=== PATIENT | male | born 1950 | race Caucasian/White ===

== ENCOUNTER 2020-04-25 04:56 | Inpatient (IN) ==
--- NOTE | 2020-03-24 16:09 | PAT Medication Instructions ---
Medication Instructions Date of Service March 24, 2020 Home Medications aspirin [Aspir-81] 81 mg PO QAM multivitamin 1 tab PO QAM omega 4-hyv-yys-fish oil [Fish Oil] 1 cap PO QAM STOP taking 2 weeks before surgery omega 5-zgf-tfd-fish oil [Fish Oil] 1 cap PO QAM DO NOT take the morning of surgery multivitamin 1 tab PO QAM Take morning of surgery With a small sip of water, OTHERWISE NOTHING TO EAT OR DRINK AFTER MIDNIGHT: aspirin [Aspir-81] 81 mg PO QAM Other Notes If you have any questions please call us at [phone] or [phone] or [phone] or [phone]
--- NOTE | 2020-03-27 07:59 | History & Physical Report ---
Date of Service March 27, 2020 date of surgery: 04-25-20 Assessment & Plan (1) Arthritis of knee, left: Risks and benefits of procedure discussed in detail today, patient would like to proceed with a Left total knee replacement at [facility] as scheduled. will obtain medical clearance from Dr Atkins prior to surgery as well as obtain PATs at [facility]. Will place on ASA 81mg po bid x 1 month post op, f/u 2 weeks post op for routine post-operative care and x-ray, sooner if having any problems. will make arrangements for HHPT at the time of discharge. At this point in time, has failed conservative measures and would like to proceed with surgical intervention. The risks and benefits have been discussed including, but not limited to, risk of infection, nerve injury, stiffness, loss of motion, failure to improve, etc. Reasonable outcomes and options of treatment were discussed. An explanation of appropriate alternatives to the procedure that may be advantageous were discussed and their risks and benefits, as well as the risks and benefits of not proceeding with treatment. I offered to answer any additional inquiries concerning the treatment involved. All the patient's questions were answered. The patient is agreeable, understanding of the treatment plan and alternatives, and wishes to proceed with the treatment plan. History of Present Illness Chief Complaint: left knee pain Primary Care Provider: Minesh Atkins Felix is a 69 year old male who complains of left knee pain, presents for pre-op evaluation prior to a left total knee replacement by dr Newton at [facility]. He complains of pain, decreased range of motion, instability and stiffness in his left knee. He states that the symptoms have been chronic and non-traumatic. Felix states that the symptoms occur constantly with intermittent worsening. Currently the patient states that the symptoms are moderate-severe. The pain is described as aching, sharp and throbbing. The symptoms occur continuously. The symptoms are aggravated by ascending stairs, daily activities, first steps while awake walking. Prior NSAIDs include Aleve and IBU. He has been treated with previous Visco injections (Euflexxa) in the past without much relief. Allergies Allergy/AdvReac Type Severity Reaction Status Date / Time No Known Allergies Allergy Verified 03/20/20 13:45 Home Medications Home Medications Medication Instructions Recorded Confirmed Type aspirin [Aspir-81] 81 mg PO QAM 03/20/20 03/20/20 History multivitamin 1 tab PO QAM 03/20/20 03/20/20 History omega 1-eue-oia-fish oil [Fish Oil] 1 cap PO QAM 03/20/20 03/20/20 History Past Med/Surg History Medical History Hearing deficit Wears hearing aids Hyperlipidemia borderline Osteoarthritis Surgical History BCC (basal cell carcinoma of skin) removed from nose and right zoroastrian History of colonoscopy x2 History of laminectomy lumbar History of tooth extraction Hx of bilateral cataract extraction Hx of vasectomy Melanoma removed from left shoulder Social History Smoking Status: Former smoker Smoking End Date: 35 YRS AGO; Second Hand Exposure: No; Do You Dip or Chew Tobacco: No; Tobacco Cessation Education Requested by Patient: No Hx Alcohol Use: Yes Alcohol type: beer Hx Substance Use: No Preferred Language: [place] Communication Ability: Effective 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 Beliefs That Will Affect Care: None Current Living Situation: Spouse Other Information That Helps Us Care for You: No Feels Safe at Home: Yes Safety Concerns: Feels Safe At This Time Review of Systems Review of Systems: All systems reviewed & are unremarkable except as noted in HPI & below Constitutional: no fever, no chills and no sweats Respiratory: no cough and no dyspnea Cardiovascular: no chest pain, no dyspnea and no orthopnea Gastrointestinal: no abdominal pain, no nausea and no vomiting Musculoskeletal: as per Subjective / HPI Physical Exam Physical Exam: HT: 6ft 2in WT: 111kg BP: 128/68 Constitutional: WD/WN, vitals as above no acute distress Respiratory: normal respiratory effort, lungs clear to auscultation no respiratory distress, no labored breathing and does not use accessory muscles Cardiovascular: RRR, no murmur, no edema Gastrointestinal (Abdomen): normal bowel sounds, soft, nontender, no hepatosplenomegaly Musculoskeletal: Knee: + knee abnormal to inspection (left knee), + deformity (varus), + effusion (+1 effusion), + limited ROM of knee (ROM 0/3/110), + knee ROM with crepitation, + joint line tenderness (medial joint line) and + Cristina's sign positive; no skin erythema, no ecchymosis, no valgus laxity, no varus laxity, anterior drawer test negative, Medhat's sign negative and pivot shift test negative Results & Data Results & Data ([facility]) Laboratory Results Laboratory Results WBC 10.31 K/uL (4.8-10.8) 03/27/20 12:10 RBC 4.71 M/uL (4.7-6.1) 03/27/20 12:10 Hgb 14.3 g/dL (14.0-18.0) 03/27/20 12:10 Hct 42.4 % (42-52) 03/27/20 12:10 MCV 90.0 fL (80-100) 03/27/20 12:10 MCH 30.4 pg (25-34) 03/27/20 12:10 MCHC 33.7 g/dL (32-36) 03/27/20 12:10 RDW Std Deviation 43.3 fL (36.4-46.3) 03/27/20 12:10 RDW Coeff of Beltran 13.2 % (11.5-14.5) 03/27/20 12:10 Plt Count 329 K/uL (130-400) 03/27/20 12:10 MPV 10.6 fL (7.4-10.4) H 03/27/20 12:10 Immature Gran % (Auto) 0.3 % 03/27/20 12:10 Neut % (Auto) 69.7 % 03/27/20 12:10 Lymph % (Auto) 19.2 % 03/27/20 12:10 [place] % (Auto) 8.5 % 03/27/20 12:10 Eos % (Auto) 1.9 % 03/27/20 12:10 Baso % (Auto) 0.4 % 03/27/20 12:10 Neut # (Auto) 7.18 K/uL (1.4-6.5) H 03/27/20 12:10 Lymph # (Auto) 1.98 K/uL (1.2-3.4) 03/27/20 12:10 [place] # (Auto) 0.88 K/uL (0.11-0.59) H 03/27/20 12:10 Eos # (Auto) 0.20 K/uL (0-0.5) 03/27/20 12:10 Baso # (Auto) 0.04 K/uL (0-0.2) 03/27/20 12:10 Immature Gran # (Auto) 0.03 K/uL (0.00-0.02) H 03/27/20 12:10 PT 10.3 Seconds (9.0-12.0) 03/27/20 12:10 INR 1.0 (0.9-1.1) 03/27/20 12:10 APTT 25.1 Seconds (21.0-31.0) 03/27/20 12:10 PTT Ratio 0.9 03/27/20 12:10 Estimat Average Glucose 120 mg/dl 03/27/20 12:10 Hemoglobin A1c 5.8 % (4.5-5.6) H 03/27/20 12:10 Urine Color Dark Yellow 03/27/20 12:10 Urine Appearance Clear (Clear) 03/27/20 12:10 Urine pH 6.0 (4.5-7.5) 03/27/20 12:10 Ur Specific [place] 1.026 (1.000-1.030) 03/27/20 12:10 Urine Protein Trace (Negative) H 03/27/20 12:10 Urine Glucose (UA) Negative (Negative) 03/27/20 12:10 Urine Ketones Trace (Negative) H 03/27/20 12:10 Urine Blood Trace (Negative) H 03/27/20 12:10 Urine Nitrite Negative (Negative) 03/27/20 12:10 Urine Bilirubin Negative (Negative) 03/27/20 12:10 Urine Urobilinogen Negative (Negative) 03/27/20 12:10 Ur Leukocyte Esterase Negative (Negative) 03/27/20 12:10 Urine WBC (Auto) 1-5 /hpf (0-5) 03/27/20 12:10 Urine RBC (Auto) 0-4 /hpf (0-4) 03/27/20 12:10 U Hyaline Cast (Auto) 1-5 /lpf (0-5) 03/27/20 12:10 U Epithel Cells (Auto) 5-10 /lpf (0-5) H 03/27/20 12:10 Urine Bacteria (Auto) Negative (Negative) 03/27/20 12:10 Blood Type A Negative 03/27/20 12:10 Antibody Screen NEGATIVE 03/27/20 12:10 Diagnostic Findings Left Knee X-ray from February 2020 confirms advanced degenerative changes to the left knee, greatest medial compartments and patellofemoral joint, showing joint space narrowing, osteophyte formation and subchondral sclerosis. no acute bony pathology noted.
--- NOTE | 2020-03-27 11:52 | Anesthesiology Consultation ---
Date of Service March 27, 2020 Assessment & Plan (1) Encounter for pre-operative examination: Chart Review Chart Review: Acceptable Risk for Surgery (pending 04/10 PCP clearance and preop Covid testing ) and Patient seen in Pre Admission Testing Awaiting surgeon ordered PCP clearance scheduled 04/10/20 Per PAT appt 03/27/20, pt traveled to [facility] for baseball game on 03/16/20- social distanced at game. Otherwise no recent travel. No known Covid positive contacts or Covid related symptoms. Educated patient to follow up with surgeon's office regarding Covid testing. Educated on importance of self quarantining, social distancing and wearing mask in public both for the patient and household contacts. Teaching & Discussion Pre-Anesthesia Teaching/Discussion Notes: Instructed NPO after midnight before surgery,except medications with 15 cc of water. Medication instructions provided according to the PAT guidelines. History Surgery Operation Date: 04/25/20 07:15 Proposed Procedures p Left Total Knee Arthroplasty - Maged Newton DO Height/Weight Height: 6 ft 2 in Weight: 114.2 kg Allergies Allergy/AdvReac Type Severity Reaction Status Date / Time No Known Allergies Allergy Verified 03/20/20 13:45 Medications Home Medications Medication Instructions Recorded Confirmed Last Taken aspirin [Aspir-81] 81 mg PO QAM 03/20/20 03/20/20 Unknown multivitamin 1 tab PO QAM 03/20/20 03/20/20 Unknown omega 2-xkg-jxr-fish oil [Fish Oil] 1 cap PO QAM 03/20/20 03/20/20 Unknown Past Medical History Medical History Hearing deficit Wears hearing aids Hyperlipidemia borderline Osteoarthritis Exercise / Class Metabolic Activity II 4-5 Yardwork/Stairs/Walk up hill (one flight stairs- no chest pain or SOB) Past Surgical History Surgical History BCC (basal cell carcinoma of skin) removed from nose and right jainism History of colonoscopy x2 History of laminectomy lumbar History of tooth extraction Hx of bilateral cataract extraction Hx of vasectomy Melanoma removed from left shoulder Past Anesthesia History No Hx of Anesthesia Complications and No Family Hx of Anesthesia Complications History of PONV No Hx of PONV and No Hx of Motion Sickness Social History Smoking Status: Former smoker Do You Dip or Chew Tobacco: No Smoking End Date: 35 YRS AGO Hx Alcohol Use: Yes Alcohol type: beer alcohol intake frequency: a few times a week Hx Substance Use: No substance use type: does not use Review of Systems Occ reflux- diet dependent Occ snoring- no witnessed apnea Patient denies chest pain, shortness of breath, dyspnea on exertion, cough, wheezing, palpitations. No hx of seizures, stroke, RI. No hx of blood clots or blood transfusions Physical Exam Vital Signs VITALS BP 164/78 P 78 TEMP 98.1 SP02 98% RESP 16 Constitutional no acute distress ENMT Mouth: no TMJ clicking Thyromental Distance: > or= 3.5 Finger Breadths (3.5) Mallampati Class: III Missing molars Crowns to molars Neck + limited neck extension (mild to moderate ) Respiratory normal respiratory effort; no respiratory distress Auscultation: lungs clear to auscultation bilaterally; no wheezes Cardiovascular Rate/Rhythm: regular rate and regular rhythm Heart Sounds: no murmur Vessels: no carotid bruit Musculoskeletal Spine: no pain with cervical ROM Neurologic moves all extremities Psychiatric Orientation: alert Testing Laboratory Results 03/27/20 12:10 03/27/20 12:10 PT 10.3 Seconds (9.0-12.0) 03/27/20 12:10 INR 1.0 (0.9-1.1) 03/27/20 12:10 APTT 25.1 Seconds (21.0-31.0) 03/27/20 12:10 Hemoglobin A1c 5.8 % (4.5-5.6) H 03/27/20 12:10 Urine Color Dark Yellow 03/27/20 12:10 Urine Appearance Clear (Clear) 03/27/20 12:10 Urine pH 6.0 (4.5-7.5) 03/27/20 12:10 Ur Specific [place] 1.026 (1.000-1.030) 03/27/20 12:10 Urine Protein Trace (Negative) H 03/27/20 12:10 Urine Glucose (UA) Negative (Negative) 03/27/20 12:10 Urine Ketones Trace (Negative) H 03/27/20 12:10 Urine Nitrite Negative (Negative) 03/27/20 12:10 Ur Leukocyte Esterase Negative (Negative) 03/27/20 12:10 Urine WBC (Auto) 1-5 /hpf (0-5) 03/27/20 12:10 Urine RBC (Auto) 0-4 /hpf (0-4) 03/27/20 12:10 U Hyaline Cast (Auto) 1-5 /lpf (0-5) 03/27/20 12:10 U Epithel Cells (Auto) 5-10 /lpf (0-5) H 03/27/20 12:10 Urine Bacteria (Auto) Negative (Negative) 03/27/20 12:10 Blood Type A Negative 03/27/20 12:10 Antibody Screen NEGATIVE 03/27/20 12:10 03/27/20 12:10 Urine Culture - Preliminary Urine,Clean Catch No growth - Less than 1,000 colonies/mL, Final report to follow. Electrocardiogram Date: 03/27/20 Normal sinus rhythm with sinus arrhythmia at 76 bpm. Chest X-Ray Date: 03/27/20 Findings: + NAD
--- NOTE | 2020-03-27 12:44 | XRay Report ---
XR chest Pre-admission PA/Lat CLINICAL HISTORY: Preoperative evaluation. COMPARISON STUDY: No previous studies for comparison. FINDINGS: Lung volumes are normal. Lungs are clear. There is no pneumothorax or pleural effusion. Car diac size is normal. Mediastinal contours are normal. There is no evidence for pulmonary edema. Later al view demonstrates extensive anterior osteophytosis of the thoracic spine. IMPRESSION: No acute cardiopulmonary findings. ACT 112: Negative or not required by law. Electronically signed by: Satya Galvan M.D. 03/27/2020 12:43 PM
[2020-03-27 13:09] LABS: Appearance Urine Clear (Clear); Bacteria Urine Automated Negative (Negative); Bilirubin Urine Negative (Negative); Blood Urine Trace (Negative); Color Urine Dark Yellow; Glucose Urine UA Negative (Negative); Ketones Urine Trace (Negative); Leukocyte Esterase Urine Negative (Negative); Nitrite Urine Negative (Negative); Protein Urine Trace (Negative); RBC Urine Automated 0-4 /hpf (0-4); Specific Gravity Urine 1.026 (1.000-1.030); Urobilinogen Urine Negative (Negative)
[2020-03-27 13:11] LABS: Basophils # (auto) 0.04 K/uL (0-0.2); Basophils % (auto) 0.4 %; Eosinophils % (auto) 1.9 %; Hematocrit (blood only) 42.4 % (42-52); Hemoglobin 14.3 g/dL (14.0-18.0); Immature Granulocytes # (auto) 0.03 K/uL (0.00-0.02); Immature Granulocytes % (auto) 0.3 %; Lymphocytes # (auto) 1.98 K/uL (1.2-3.4); Lymphocytes % (auto) 19.2 %; Mean Corpuscular Hemoglobin 30.4 pg (25-34); Mean Corpuscular Hgb Conc 33.7 g/dL (32-36); Mean Platelet Volume 10.6 fL (7.4-10.4); Monocytes # (auto) 0.88 K/uL (0.11-0.59); Monocytes % (auto) 8.5 %; Neutrophils # (auto) 7.18 K/uL (1.4-6.5); Neutrophils % (auto) 69.7 %; Platelet Count 329 K/uL (130-400); RDW Coefficient of Variation 13.2 % (11.5-14.5); RDW Standard Deviation 43.3 fL (36.4-46.3); Red Blood Count 4.71 M/uL (4.7-6.1); White Blood Count 10.31 K/uL (4.8-10.8)
[2020-03-27 13:18] LABS: Partial Thromboplastin Ratio 0.9; Partial Thromboplastin Time 25.1 Seconds (21.0-31.0); Prothrombin Time 10.3 Seconds (9.0-12.0)
[2020-03-27 13:54] LABS: Estimated Average Glucose 120 mg/dl; Hemoglobin A1C 5.8 % (4.5-5.6)
[2020-03-27 14:08] LABS: Albumin Level 3.8 gm/dl (3.4-5.0); BUN Creatinine Ratio 18.6 (10-20); Calcium 8.8 mg/dl (8.5-10.1); Creatinine Clr Calc Pharmacy 72.8 ml/min; Est GFR (African American) 66.7; Est GFR (Non-African American) 57.6; Potassium 4.6 mmol/L (3.5-5.1)
--- NOTE | 2020-03-27 15:30 | Electrocardiogram Report ---
Test Reason : Blood Pressure : / mmHG Vent. Rate : 076 BPM Atrial Rate : 076 BPM P-R Int : 182 ms QRS Dur : 092 ms QT Int : 378 ms P-R-T Axes : 067 031 058 degrees QTc Int : 425 ms Normal sinus rhythm with sinus arrhythmia Normal ECG No previous ECGs available Confirmed by Gordon Granados ([id number]) on 03/27/2020 3:30:39 PM Referred By: Maged Newton Confirmed By:Gordon Granados
[2020-04-25] MEDS ORDERED: LR 500ML BOLUS, THEN 15ML/HR IV SCH (06:00)
[2020-04-25] MEDS ORDERED: TRANEXAMIC ACID 1,000 MG **IV Intra-op IV SCH (06:00)
[2020-04-25] MEDS ORDERED: dexAMETHasone 4 MG TAB PO SCH (06:00)
[2020-04-25] MEDS ORDERED: CEFAZOLIN 2000MG 2,000 MG/15 ML SYR IV SCH (06:00)
[2020-04-25] MEDS ORDERED: TRANEXAMIC ACID 1,000 MG **IV Pre-op IV SCH (06:00)
[2020-04-25] MEDS ORDERED: ACETAMINOPHEN 500 MG TAB PO SCH (06:00)
[2020-04-25] MEDS ORDERED: FAMOTIDINE 20 MG TAB PO SCH (06:00)
[2020-04-25] MEDS ORDERED: GABAPENTIN 300 MG CAP PO SCH (06:00)
[2020-04-25] MEDS ORDERED: ROPIVACAINE 0.5% HCL/PF 150 MG, BUPIVACAINE 0.5% MPF 30 ML, EPINEPHrine 30MG/30ML (OR U... INSTIL SCH (06:00)
[2020-04-25] MEDS ORDERED: METOCLOPRAMIDE HCL 10 MG TABLET PO SCH (06:00)
[2020-04-25] MEDS ORDERED: CeleBREX 200 MG CAP PO SCH (06:00)
[2020-04-25] MEDS ORDERED: BUPIVACAINE 0.5 % 5 MG/1 ML PF 10ML VIAL ONE (06:30)
[2020-04-25] MEDS ORDERED: fentaNYL citrate 100 MCG/2 ML VIAL IV PRN (06:39)
[2020-04-25] MEDS ORDERED: ONDANSETRON INJ 2 MG/ML 2 ML VIAL IV PRN ×2 (06:39→10:45)
[2020-04-25] MEDS ORDERED: ATROPINE SULFATE 0.1 MG/ML 10ML SYR IV PRN (06:39)
[2020-04-25] MEDS ORDERED: ePHEDrine sulfate 50 MG/ML AMP IV PRN (06:39)
[2020-04-25] MEDS ORDERED: LIDOCAINE HCL 2% 2 ML VIAL/AMP(20MG/ML) INFIL ONE (07:00)
[2020-04-25] MEDS ORDERED: PROPOFOL IV EMULSION 10 MG/ML 20 ML VIAL IV ONE (07:00)
[2020-04-25] MEDS ORDERED: ONDANSETRON INJ 2 MG/ML 2 ML VIAL ONE (07:00)
[2020-04-25] MEDS ORDERED: MIDAZOLAM HCL 1 MG/ML 2ML VIAL ONE (07:01)
[2020-04-25] MEDS ORDERED: fentaNYL citrate 100 MCG/2 ML VIAL ONE (07:01)
[2020-04-25] MEDS ORDERED: ORTHO JOINT ANESTHETIC ONE (07:06)
[2020-04-25] MEDS ORDERED: BACITRACIN INJ 50,000 UNIT VIAL ONE (07:07)
--- NOTE | 2020-04-25 07:23 | History & Physical Bridge Note ---
Date of Service April 25, 2020 History & Physical Bridge Note I have examined the patient, reviewed the History & Physical and in the interval since the performance of the History & Physical I have noted the following changes of clinical significance: no changes noted
--- NOTE | 2020-04-25 08:27 | Operative Report ---
Post Operative Report Pre & Post Diagnosis Operation Date: 04/25/20 07:15 Pre-Op Diagnosis: Unilateral Primary Osteoarthritis, left Knee Post-Op Diagnosis: Unilateral Primary Osteoarthritis, left Knee I identified the patient and participated in the time-out.: Yes Procedure journey 2 patient matched total knee arthroplasty size 9 femur Utilizing [employer] 7 tibia 10 polyethylene 38 oval patella Operation Date: 04/25/20 07:15 Actual Procedures p Left Total Knee Arthroplasty(Left) - Maged Newton DO Surgeon Maged Newton DO House Decorator LLOYD Velasquez Estimated Blood Loss 5 Findings Consistent with Post-Op Diagnosis Patient presents with severe end-stage DJD varus alignment subchondral cystic changes marginal osteophytes eburnated [id number] tricompartmentally with moderate to large effusion Specimens Bone and cartilage Drains Medium bore Hemovac Anesthesia Type MAC Spinal Regional Complications none Disposition Accompanied Patient To Recovery: No Disposition: Recovery Room Indications Patient presents for left total knee arthroplasty after failed attempted conservative management including corticosteroid injection Visco supplementation relative rest activity modification the above intraoperative findings no time surgery. Description of Procedure After proper prepping and draping of the left lower extremity anterior midline incision was made over the region of the extensor extensor mechanism after meticulous hemostasis was obtained and maintained in subcutaneous tissues a medial parapatellar incision was made The patella was subluxed lateralward the medial lateral gutter were cleaned from any hypertrophic synovitis and scar tissue of the distal femoral block was placed and the distal femoral osteotomy cut was made subsequently the chamfers anterior and posterior osteotomy cuts were made utilizing the 4-in-1 block the tibia was subsequently subluxed anteriorward medial and ateral meniscal remnants were excised in their entirety remnants of the anterior and posterior cruciate ligaments were excised in their entirety excellent exposure of the proximal tibia was obtained the tibial osteotomy guide was placed on the proximal tibial osteotomy cut was made once again the knee was irrigated with copious amounts of sterile saline solution the patella was subsequently everted lateralward thickened scar tissue around the patella was removed the patella was subsequently cut utilizing a freehand technique and was drilled prepared for final preparation and placement of patella socially flexion-extension gaps were checked and the equal and symmetric trials were placed to the appropriate femoral and tibial trials with poly-spacer being placed for equal flexion and extension gaps and full range of motion including extension to 0 and flexion to 140 the trial components after having been taken to recovery range of motion was subsequently removed meticulous hemostasis was obtained and maintained subsequently a knee block injection of joint cocktail including ropivacaine 0.5% 150 mg. Bupivacaine 0.5% epinephrine 1-200,030 mL's toradol 30 mg dexamethasone 4 mg ketamine 10 mg clonidine 100 micrograms normal saline solution 30 mg was infiltrated into the soft tissues of the posterior knee medial lateral gutters and periosteal synovium special attention was paid to protect neurovascular structures at all times subsequently trial components having been removed the knee was irrigated with sterile saline solution. debris was removed the proximal tibia was subsequently prepared and was made ready for the placement of the tibial component tibial component was also cemented and tamped into position the femoral component was subsequently placed and cemented in the position the patellar component was subsequently cemented in position because hemostasis once again obtained and maintained wound having been thoroughly irrigated with debridement and debridement lavage was performed as well as a medial parapatellar incision closed with #1 Vicryl in interrupted fashion subcutaneous was closed with #2 Vicryl skin was closed with skin clips. PA-C was necessary for prepping and drapping as well as wound closure of deep fascia Sub cutaneous tissue and skin and was necessary for the case. A sterile compressive dressing was placed patient was taken to recovery in stable condition of report dictated by Aman I attest to the content of the Intraoperative Record and any orders documented therein. Any exceptions are noted below. I attest to the content of the Intraoperative Record and any orders documented therein. Any exceptions are noted below.
--- NOTE | 2020-04-25 09:40 | XRay Report ---
XR knee LT 1 or 2V routine HISTORY: 70 years-old Male Surgical Post Op [knee total joint arthroplasty COMPARISON: None TECHNIQUE: 2 views of the left knee FINDINGS: Left knee total joint arthroplasty and patella resurfacing. Expected postoperative soft tissue swelli ng and deep tissue air with surgical drainage catheter. No acute fracture or retained foreign body. IMPRESSION: Left knee total joint arthroplasty with expected postoperative changes. ACT 112: Negative or not required by law. The above report was generated using voice recognition software. It may contain grammatical, syntax o r spelling errors. Electronically signed by: Gelacio Kilgore M.D. 04/25/2020 9:39 AM
--- NOTE | 2020-04-25 10:12 | Anesthesiology Progress Note ---
Date of Service April 25, 2020 Anesthesia Post Procedure Vital Signs Vital Signs: Temp Pulse Pulse Resp BP Pulse Ox 04/25/20 10:00 93 H 18 106/74 98 04/25/20 09:50 97.7 F 82 17 99/59 L 96 04/25/20 09:40 91 H 20 101/72 95 04/25/20 09:30 83 20 103/60 95 04/25/20 09:20 86 17 103/59 L 93 04/25/20 09:11 97.0 F L 96 H 21 108/58 L 93 04/25/20 05:24 98.2 F 74 18 154/81 H 98 Transfer of Care Handoff Completed per policy Notes Mental Status: alert / awake / arousable and participated in evaluation Patient Amnestic to Procedure: Yes Nausea / Vomiting: adequately controlled Pain: adequately controlled Airway Patency, RR, SpO2: stable & adequate BP & HR: stable & adequate Hydration State: stable & adequate Neuraxial Anesthesia: was administered and sensory block is resolving Anesthetic Complications: no major complications apparent and Pt Satisfied with anesthetic care
[2020-04-25] MEDS ORDERED: bisacodyL 10 MG SUPP PR PRN (10:45)
[2020-04-25] MEDS ORDERED: HYDROmorphone INJ 1 MG/ML SYRINGE IV PRN (10:45)
[2020-04-25] MEDS ORDERED: METOCLOPRAMIDE HCL INJ 5 MG/ML 2 ML VIAL IV PRN (10:45)
[2020-04-25] MEDS ORDERED: MAGNESIUM HYDROXIDE SUSP 30 ML UDC PO PRN (10:45)
[2020-04-25] MEDS ORDERED: OXYCODONE HCL IR 5 MG TAB (IMMEDIATE RELEASE) PO PRN (10:45)
[2020-04-25] MEDS ORDERED: NALOXONE HCL 0.4 MG/1 ML VIAL/CARP IV PRN (10:45)
[2020-04-25] MEDS: SODIUM CHLORIDE 0.9% 1000ML 1,000 ML IV SCH ×2 (11:30→20:15)
[2020-04-25] MEDS: KETOROLAC TROMETHAMINE 15 MG/ML VIAL IV SCH ×3 (11:30→22:16)
[2020-04-25] MEDS: ACETAMINOPHEN 500 MG TAB PO SCH ×2 (14:21→22:16)
[2020-04-25] MEDS: CEFAZOLIN 2000MG 2,000 MG/15 ML SYR IV SCH ×2 (16:10→23:51)
[2020-04-25] MEDS: DOCUSATE SODIUM 100 MG CAP PO SCH (20:16)
[2020-04-25] MEDS: CeleBREX 200 MG CAP PO SCH (20:16)
[2020-04-25] MEDS: ASPIRIN 81 MG ECTAB PO SCH (20:16)
[2020-04-25] MEDS ORDERED: SENNA 8.6 MG TAB PO SCH (21:00)
[2020-04-26] MEDS: KETOROLAC TROMETHAMINE 15 MG/ML VIAL IV SCH (05:10)
[2020-04-26] MEDS: ACETAMINOPHEN 500 MG TAB PO SCH ×2 (05:10→13:30)
[2020-04-26 06:23] LABS: Hematocrit (blood only) 33.2 % (42-52); Hemoglobin 11.2 g/dL (14.0-18.0); Mean Corpuscular Hemoglobin 30.2 pg (25-34); Mean Corpuscular Hgb Conc 33.7 g/dL (32-36); Mean Corpuscular Volume 89.5 fL (80-100); Mean Platelet Volume 10.5 fL (7.4-10.4); Platelet Count 248 K/uL (130-400); RDW Coefficient of Variation 13.3 % (11.5-14.5); RDW Standard Deviation 43.6 fL (36.4-46.3); Red Blood Count 3.71 M/uL (4.7-6.1); White Blood Count 16.35 K/uL (4.8-10.8)
[2020-04-26 06:56] LABS: BUN Creatinine Ratio 22.6 (10-20); Creatinine Clr Calc Pharmacy 63.2 ml/min; Est GFR (African American) 56.8; Potassium 4.5 mmol/L (3.5-5.1)
[2020-04-26] MEDS: CeleBREX 200 MG CAP PO SCH (08:27)
[2020-04-26] MEDS: DOCUSATE SODIUM 100 MG CAP PO SCH (08:27)
[2020-04-26] MEDS: ASPIRIN 81 MG ECTAB PO SCH (08:27)
[2020-04-26] MEDS ORDERED: MULTIVITAMIN TAB PO SCH (09:00)
--- NOTE | 2020-04-26 09:18 | Orthopedic Progress Note ---
Date of Service April 26, 2020 Assessment & Plan (1) History of total left knee replacement: POD #1 s/p Left TKA pt/ot dvt proph with TOSHA/SCD/ASA plan for d/c home with OPPT after PT today, will d/c hemovac prior to d/c Admission and Anticipated Discharge Date Admission Date: April 25, 2020 Subjective POD #1 s/p Left TKA Review of Systems Constitutional: no fever, no chills and no sweats Respiratory: no cough and no dyspnea Cardiovascular: no chest pain and no dyspnea Gastrointestinal: no abdominal pain, no nausea and no vomiting Physical Exam Physical Exam: Vital Signs Temp 36.6 C 04/26/20 07:39 Pulse 81 04/26/20 07:39 Resp 16 04/26/20 07:39 BP 142/75 H 04/26/20 07:39 Pulse Ox 93 04/26/20 07:39 Intake & Output 04/25/20 04/26/20 04/26/20 18:59 06:59 18:59 Intake Total 1900 / 4485 2585 / 4485 Output Total 530 / 2590 2060 / 2590 Balance 1370 / 1895 525 / 1895 Intake: IV 500 / 2375 1875 / 2375 Lr 1,000 ml @ 15 mls/hr IV . 400 / 400 Q24H [facility] Rx#:[id number] Nss 1000ML 1,0 00 ml @ 100 mls/ 1875 / 1875 hr IV .Q10H [facility] Rx#:[id number] TRANEXAMIC ACI D / 0.7% NACL 1, 100 / 100 000 mg In 100 ml @ 600 mls/hr IV TODAY@0600 [facility] Rx#:[id number] IV Perioperative 1400 / 1400 Oral 710 / 710 Output: Urine 375 / 2325 1950 / 2325 Estimated Blood Loss 5 / 5 Drain Output 150 / 260 110 / 260 Left Knee Hemo vac 150 / 260 110 / 260 Constitutional: WD/WN, vitals as above no acute distress Musculoskeletal: Left Leg: NVDI, calf SNT, negative cait sign. DP palpable, able to wiggle toes/ankle movement without difficulty. dressing clean dry and intact. Results & Data ([facility]) Vital Signs (Past 12 Hours) Vital Signs Temp Pulse Pulse Resp BP BP Pulse Ox 04/26/20 07:39 36.6 C 81 16 142/75 H 93 04/26/20 04:01 36.6 C 74 18 119/58 L 94 04/25/20 23:02 36.6 C 71 19 120/57 L 95 Laboratory Results Laboratory Results WBC 16.35 K/uL (4.8-10.8) H 04/26/20 05:19 RBC 3.71 M/uL (4.7-6.1) L 04/26/20 05:19 Hgb 11.2 g/dL (14.0-18.0) L 04/26/20 05:19 Hct 33.2 % (42-52) L 04/26/20 05:19 MCV 89.5 fL (80-100) 04/26/20 05:19 MCH 30.2 pg (25-34) 04/26/20 05:19 MCHC 33.7 g/dL (32-36) 04/26/20 05:19 RDW Std Deviation 43.6 fL (36.4-46.3) 04/26/20 05:19 RDW Coeff of Beltran 13.3 % (11.5-14.5) 04/26/20 05:19 Plt Count 248 K/uL (130-400) 04/26/20 05:19 MPV 10.5 fL (7.4-10.4) H 04/26/20 05:19 Immature Gran % (Auto) 0.3 % 03/27/20 12:10 Neut % (Auto) 69.7 % 03/27/20 12:10 Lymph % (Auto) 19.2 % 03/27/20 12:10 [place] % (Auto) 8.5 % 03/27/20 12:10 Eos % (Auto) 1.9 % 03/27/20 12:10 Baso % (Auto) 0.4 % 03/27/20 12:10 Neut # (Auto) 7.18 K/uL (1.4-6.5) H 03/27/20 12:10 Lymph # (Auto) 1.98 K/uL (1.2-3.4) 03/27/20 12:10 [place] # (Auto) 0.88 K/uL (0.11-0.59) H 03/27/20 12:10 Eos # (Auto) 0.20 K/uL (0-0.5) 03/27/20 12:10 Baso # (Auto) 0.04 K/uL (0-0.2) 03/27/20 12:10 Immature Gran # (Auto) 0.03 K/uL (0.00-0.02) H 03/27/20 12:10 PT 10.3 Seconds (9.0-12.0) 03/27/20 12:10 INR 1.0 (0.9-1.1) 03/27/20 12:10 APTT 25.1 Seconds (21.0-31.0) 03/27/20 12:10 PTT Ratio 0.9 03/27/20 12:10 Sodium 140 mmol/L (136-145) 04/26/20 05:19 Potassium 4.5 mmol/L (3.5-5.1) 04/26/20 05:19 Chloride 110 mmol/L (98-107) H 04/26/20 05:19 Carbon Dioxide 23 mmol/L (21-32) 04/26/20 05:19 Anion Gap 7.0 (3-11) 04/26/20 05:19 BUN 32 mg/dl (7-18) H 04/26/20 05:19 Creatinine 1.42 mg/dl (0.6-1.4) H 04/26/20 05:19 Est Cr Clr Drug Dosing 63.2 ml/min 04/26/20 05:19 Est GFR ( Amer) 56.8 04/26/20 05:19 Est GFR (Non-Af Amer) 49.0 04/26/20 05:19 BUN/Creatinine Ratio 22.6 (10-20) H 04/26/20 05:19 Glucose 111 mg/dl (70-99) H 04/26/20 05:19 Estimat Average Glucose 120 mg/dl 03/27/20 12:10 Hemoglobin A1c 5.8 % (4.5-5.6) H 03/27/20 12:10 Calcium 8.0 mg/dl (8.5-10.1) L 04/26/20 05:19 Albumin 3.8 gm/dl (3.4-5.0) 03/27/20 12:10 Urine Color Dark Yellow 03/27/20 12:10 Urine Appearance Clear (Clear) 03/27/20 12:10 Urine pH 6.0 (4.5-7.5) 03/27/20 12:10 Ur Specific [place] 1.026 (1.000-1.030) 03/27/20 12:10 Urine Protein Trace (Negative) H 03/27/20 12:10 Urine Glucose (UA) Negative (Negative) 03/27/20 12:10 Urine Ketones Trace (Negative) H 03/27/20 12:10 Urine Blood Trace (Negative) H 03/27/20 12:10 Urine Nitrite Negative (Negative) 03/27/20 12:10 Urine Bilirubin Negative (Negative) 03/27/20 12:10 Urine Urobilinogen Negative (Negative) 03/27/20 12:10 Ur Leukocyte Esterase Negative (Negative) 03/27/20 12:10 Urine WBC (Auto) 1-5 /hpf (0-5) 03/27/20 12:10 Urine RBC (Auto) 0-4 /hpf (0-4) 03/27/20 12:10 U Hyaline Cast (Auto) 1-5 /lpf (0-5) 03/27/20 12:10 U Epithel Cells (Auto) 5-10 /lpf (0-5) H 03/27/20 12:10 Urine Bacteria (Auto) Negative (Negative) 03/27/20 12:10 Blood Type A Negative 03/27/20 12:10 Antibody Screen NEGATIVE 03/27/20 12:10 Diagnostic Findings XR knee LT 1 or 2V routine HISTORY: 70 years-old Male Surgical Post Op [knee total joint arthroplasty COMPARISON: None TECHNIQUE: 2 views of the left knee FINDINGS: Left knee total joint arthroplasty and patella resurfacing. Expected postoperative soft tissue swelling and deep tissue air with surgical drainage catheter. No acute fracture or retained foreign body. IMPRESSION: Left knee total joint arthroplasty with expected postoperative changes.
--- NOTE | 2020-04-27 07:42 | Discharge Summary ---
Date of Service date of discharge: April 26, 2020 date of admission: 04-25-20 Admission HPI Per Admitting Provider Felix is a 69 year old male who complains of left knee pain, presents for pre-op evaluation prior to a left total knee replacement by dr Newton at [facility]. He complains of pain, decreased range of motion, instability and stiffness in his left knee. He states that the symptoms have been chronic and non-traumatic. Felix states that the symptoms occur constantly with intermittent worsening. Currently the patient states that the symptoms are moderate-severe. The pain is described as aching, sharp and throbbing. The symptoms occur continuously. The symptoms are aggravated by ascending stairs, daily activities, first steps while awake walking. Prior NSAIDs include Aleve and IBU. He has been treated with previous Visco injections (Euflexxa) in the past without much relief. Principal Diagnosis left knee arthritis Discharge Exam Vital Signs Temp 36.6 C 04/26/20 07:39 Pulse 81 04/26/20 07:39 Resp 16 04/26/20 07:39 BP 142/75 H 04/26/20 07:39 Pulse Ox 93 04/26/20 07:39 Intake & Output 04/26/20 04/27/20 04/27/20 18:59 06:59 18:59 Weight 114.2 kg Constitutional WD/WN, vitals as above no acute distress Musculoskeletal left knee: NVDI, calf SNT, negative cait sign. DP palpable, able to wiggle toes/ankle movement without difficulty. Discharge Data Allergies Allergy/AdvReac Type Severity Reaction Status Date / Time No Known Allergies Allergy Verified 04/25/20 05:33 Consultations 04/25/20 10:37 Consult Case Management - Discharge Planning Routine Procedures Performed Operation Date: 04/25/20 07:15 Actual Procedures p Left Total Knee Arthroplasty(Left) - Maged Newton DO Ordered Studies 04/25/20 05:00 US - OR guided needle placemen Routine Hospital Course (1) History of total left knee replacement: POD #1 s/p Left TKA pt/ot dvt proph with TOSHA/SCD/ASA plan for d/c home with OPPT after PT today, will d/c hemovac prior to d/c Laboratory Results WBC 16.35 K/uL (4.8-10.8) H 04/26/20 05:19 RBC 3.71 M/uL (4.7-6.1) L 04/26/20 05:19 Hgb 11.2 g/dL (14.0-18.0) L 04/26/20 05:19 Hct 33.2 % (42-52) L 04/26/20 05:19 MCV 89.5 fL (80-100) 04/26/20 05:19 MCH 30.2 pg (25-34) 04/26/20 05:19 MCHC 33.7 g/dL (32-36) 04/26/20 05:19 RDW Std Deviation 43.6 fL (36.4-46.3) 04/26/20 05:19 RDW Coeff of Beltran 13.3 % (11.5-14.5) 04/26/20 05:19 Plt Count 248 K/uL (130-400) 04/26/20 05:19 MPV 10.5 fL (7.4-10.4) H 04/26/20 05:19 Immature Gran % (Auto) 0.3 % 03/27/20 12:10 Neut % (Auto) 69.7 % 03/27/20 12:10 Lymph % (Auto) 19.2 % 03/27/20 12:10 [place] % (Auto) 8.5 % 03/27/20 12:10 Eos % (Auto) 1.9 % 03/27/20 12:10 Baso % (Auto) 0.4 % 03/27/20 12:10 Neut # (Auto) 7.18 K/uL (1.4-6.5) H 03/27/20 12:10 Lymph # (Auto) 1.98 K/uL (1.2-3.4) 03/27/20 12:10 [place] # (Auto) 0.88 K/uL (0.11-0.59) H 03/27/20 12:10 Eos # (Auto) 0.20 K/uL (0-0.5) 03/27/20 12:10 Baso # (Auto) 0.04 K/uL (0-0.2) 03/27/20 12:10 Immature Gran # (Auto) 0.03 K/uL (0.00-0.02) H 03/27/20 12:10 PT 10.3 Seconds (9.0-12.0) 03/27/20 12:10 INR 1.0 (0.9-1.1) 03/27/20 12:10 APTT 25.1 Seconds (21.0-31.0) 03/27/20 12:10 PTT Ratio 0.9 03/27/20 12:10 Sodium 140 mmol/L (136-145) 04/26/20 05:19 Potassium 4.5 mmol/L (3.5-5.1) 04/26/20 05:19 Chloride 110 mmol/L (98-107) H 04/26/20 05:19 Carbon Dioxide 23 mmol/L (21-32) 04/26/20 05:19 Anion Gap 7.0 (3-11) 04/26/20 05:19 BUN 32 mg/dl (7-18) H 04/26/20 05:19 Creatinine 1.42 mg/dl (0.6-1.4) H 04/26/20 05:19 Est Cr Clr Drug Dosing 63.2 ml/min 04/26/20 05:19 Est GFR ( Amer) 56.8 04/26/20 05:19 Est GFR (Non-Af Amer) 49.0 04/26/20 05:19 BUN/Creatinine Ratio 22.6 (10-20) H 04/26/20 05:19 Glucose 111 mg/dl (70-99) H 04/26/20 05:19 Estimat Average Glucose 120 mg/dl 03/27/20 12:10 Hemoglobin A1c 5.8 % (4.5-5.6) H 03/27/20 12:10 Calcium 8.0 mg/dl (8.5-10.1) L 04/26/20 05:19 Albumin 3.8 gm/dl (3.4-5.0) 03/27/20 12:10 Urine Color Dark Yellow 03/27/20 12:10 Urine Appearance Clear (Clear) 03/27/20 12:10 Urine pH 6.0 (4.5-7.5) 03/27/20 12:10 Ur Specific [place] 1.026 (1.000-1.030) 03/27/20 12:10 Urine Protein Trace (Negative) H 03/27/20 12:10 Urine Glucose (UA) Negative (Negative) 03/27/20 12:10 Urine Ketones Trace (Negative) H 03/27/20 12:10 Urine Blood Trace (Negative) H 03/27/20 12:10 Urine Nitrite Negative (Negative) 03/27/20 12:10 Urine Bilirubin Negative (Negative) 03/27/20 12:10 Urine Urobilinogen Negative (Negative) 03/27/20 12:10 Ur Leukocyte Esterase Negative (Negative) 03/27/20 12:10 Urine WBC (Auto) 1-5 /hpf (0-5) 03/27/20 12:10 Urine RBC (Auto) 0-4 /hpf (0-4) 03/27/20 12:10 U Hyaline Cast (Auto) 1-5 /lpf (0-5) 03/27/20 12:10 U Epithel Cells (Auto) 5-10 /lpf (0-5) H 03/27/20 12:10 Urine Bacteria (Auto) Negative (Negative) 03/27/20 12:10 Blood Type A Negative 03/27/20 12:10 Antibody Screen NEGATIVE 03/27/20 12:10 Total Time Total Time Spent Total Time Spent (In Minutes): 20 Total Time Includes: Examination of the Patient, Discharge Planning and Medic ation Reconciliation Discharge Plan Discharge Items Patient Disposition: Home - Self-Care Reason For Visit: POST OP TKA Discharge Diagnosis: left total knee replacement Condition on Discharge: Good Activity: Per Instructions section Lifting: Wait until after follow-up appointment Non-emergency contact: Surgeon Call non-emergency contact if: you have any medication questions, your temperature is above 101, your wound has increased redness, your wound has increased drainage and your wound pain has increased Follow-up/Referrals: Minesh Atkins DO [Primary Care Provider] - Diet: Regular Addtl Attending Provider Instructions: ACTIVITY RECOMMENDATIONS: SELF CARE INSTRUCTIONS AFTER TOTAL KNEE REPLACEMENT A. You may need to continue a physical therapy program after discharge from the hospital. There are several options available to you. Your doctor will assist you in selecting the best one for you. 1. An out-patient facility 2 to 3 times a week for therapy or home therapy. 2. Continue working on all exercises taught to you in the hospital. Your goals should be to increase bending of your knee to 90 degrees and beyond and to fully straighten your knee. B. You may progress at your own pace from walking with a walker or crutches to a cane; then to no assistive devices. C. Make walking a part of your daily routine. Be up as much as comfortable with rest periods throughout the day. Rest with leg elevation is very important. Use the ice wrap frequently for the first 3-4 weeks. D. There are no restrictions on activities. You may ride in a car, shop, participate in sql manager and all social activities. E. Wear the long elastic stockings (TOSHA hose) 20 hours a day for 2 weeks after surgery. They can be removed several times a day for laundering and for a bath. F. You may shower, no tub baths until cleared by your doctor. SPECIAL CARE INSTRUCTIONS: VERY IMPORTANT TO READ AND REVIEW A. There are a few signs you need to watch for after you are home. Call [facility] if you notice any of the followin. Increased severe knee pain. Some pain is expected especially when you exercise. 2. Increased swelling in your leg or knee; pain or swelling of the calf muscle in either lower leg. 3. Any fluid drainage from the incision. 4. Shortness of breath or chest pain. B. Please call [facility] at if you have any concerns or questions about your operation or recovery. The doctor or his nurse will return your call promptly. C. You must take antibiotics before dental work, bladder, bowel or other surgery. Your doctor will provide you with a permanent care to carry describing this precaution. IMPORTANT: * REMEMBER TO TAKE ASPIRIN, 81 MG, TWICE DAILY FOR 4 WEEKS UNLESS OTHERWISE DIRECTED. THIS IS YOUR BLOOD THINNER. * HIGH RISK PATIENTS MAY BE PRESCRIBED A STRONGER BLOOD THINNER. THIS WILL BE PROVIDED AT DISCHARGE. * CALL IF INCREASED PAIN, REDNESS, DRAINAGE OR FEVER GREATER THAT 101. * WEAR TOSHA HOSE 20 HOURS PER DAY FOR 2 WEEKS. * DERMABOND Prineo- This is a mesh tape dressing that is covered with glue. It should remain in place until the incision is properly healed, usually 10-14 days. This dressing is designed to naturally slough off. You may trim the excess mesh tape as it peels off. Incision may be briefly wet in a shower. Dr savage immediately by blotting with a clean, dry towel. Do not bath or swim until instructed by your doctor. Do not scratch, rub, or pick at the dressing. Do not apply any topical ointments or lotions until dressing is completely removed and/or instructed by your doctor. There may be a small piece of suture material at one end of your incision. Do not pull or trim this. If it is bothersome or catching on clothing, you may cover it with a band-aid. IF INCISION IS LEAKING THROUGH DRESSING, CALL THE OFFICE . FOLLOW UP VISIT: If appointment is not already scheduled: Please call [facility] to make a follow-up appointment for 2 weeks after your surgery at . Pending Studies at Discharge: No Stand-Alone Forms: My [facility], Opioid Pain Management, Smoking Cessation Medications and DC Order Prescriptions: New celecoxib [Celebrex] 200 mg Capsule 200 mg PO BID 30 Days Qty: 60 RF: 0 aspirin 81 mg Tablet,Delayed Release (Dr/Ec) 81 mg PO BID 30 Days Qty: 60 RF: 0 acetaminophen 500 mg Tablet 1,000 mg PO Q8 21 Days Qty: 126 RF: 0 oxycodone 5 mg Tablet 5 - 10 mg PO Q6H PRN (Reason: pain) Qty: 30 RF: 0 docusate sodium 100 mg Capsule 100 mg PO BID 10 Days Qty: 20 RF: 0 cefadroxil 500 mg capsule 500 mg PO BID 10 Days Qty: 20 RF: 0 Continued multivitamin Tablet 1 tab PO QAM RF: 0 Discontinued aspirin [Aspir-81] 81 mg Tablet,Delayed Release (Dr/Ec) 81 mg PO QAM RF: 0 omega [id number] oil [Fish Oil] 1,000 mg (120 mg-180 mg) Capsule 1 cap PO QAM RF: 0 Discharge Orders: Discharge Order (Routine); Ordered 04/26/20 Ordered By: Michael Cantrell/Other Patient Handouts: DVT Post Op Prevention Admission Data Admit Date/Time: 04/25/20 14:50 Attending Provider: Maged Newton Admit Provider: Maged Newton Primary Care Provider: Minesh Atkins Other Interventions: Discharge Summary Assessment (RN) Last Done: 04/26/20 09:26
== END 2020-04-26 14:27 | disposition home or self-care (01) | DRG 470 ==
LOC: ASU 04:56 → 3E 04:56